=== PATIENT | female | born 1960 | race Caucasian/White ===

== ENCOUNTER → 2023-08-08 14:53 | Outpatient (REF) | payer BC, SELFPAY | LOC: WDC 14:53 | PROVIDERS: ATTENDING PHYSICIAN Obstetrics & Gynecology; FAMILY PHYSICIAN Family Medicine | DX: R92.2 Inconclusive mammogram (principal) | CPT/HCPCS: 76641 ==

== ENCOUNTER 2024-04-23 09:45 | Day surgery (SDC) | payer BC, SELFPAY ==
--- NOTE | 2024-04-23 11:51 | ITS.CL.CARDI ---
Medical Receptionist - Cardioversion
Cardioversion
Procedure Report:
Date of Procedure: 04/23/24
Procedure: Cardioversion
Indication: Symptomatic atrial fibrillation
Performing Physician: Kenisha Chirinos DO [facility]
Anticoagulation: Eliquis
Technique: The patient was brought to the holding area. Signed informed consent was obtained. A time out was called and performed. The patient was anesthetized by the anesthesia service. Anticoagulation status was reviewed and appropriate. R2 pads
were placed anteriorly and posteriorly. A 200 J synchronized biphasic shock restored normal sinus rhythm without significant bradycardia. There were no complications.
Conclusion: Uncomplicated cardioversion from atrial fibrillation to sinus rhythm. Postprocedure EKG sinus bradycardia with heart rates 56 bpm and otherwise normal tracing.
Recommendation: Routine post cardioversion care. Continue termite control representative anticoagulation.
== END 2024-04-23 11:10 | disposition home or self-care (01) ==
LOC: CATH 09:45
PROVIDERS: ATTENDING PHYSICIAN Internal Medicine Cardiovascular Disease; FAMILY PHYSICIAN Physician Assistant Medical; OTHER PHYSICIAN Internal Medicine Cardiovascular Disease
DX: Z79.01 Long term (current) use of anticoagulants (principal); I48.91 Unspecified atrial fibrillation
CPT/HCPCS: 92960; 93005

== ENCOUNTER → 2024-05-02 14:10 | Outpatient (REF) | payer BC, SELFPAY | LOC: WDC 14:10 | PROVIDERS: ATTENDING PHYSICIAN Obstetrics & Gynecology; FAMILY PHYSICIAN Physician Assistant Medical | DX: Z12.31 Encounter for screening mammogram for malignant neoplasm of breast (principal) | CPT/HCPCS: 77063; 77067 ==

== ENCOUNTER → 2024-05-25 12:00 | Outpatient (REF) | payer BC, SELFPAY | LOC: DHSLP 12:00 | PROVIDERS: ATTENDING PHYSICIAN Internal Medicine Cardiovascular Disease; FAMILY PHYSICIAN Physician Assistant Medical | DX: G47.33 Obstructive sleep apnea (adult) (pediatric) (principal) | CPT/HCPCS: 95806 ==

== ENCOUNTER 2024-05-31 05:59 | Day surgery (SDC) | payer BC, SELFPAY ==
--- NOTE | 2024-05-22 09:05 | HPS.HSE ---
Family Physician
-
Family Physician: NOT KNOW UNKNOWN - PT DOES
Chief Complaint
-
Persistent atrial fibrillation.
History of Present Illness
The patient is a 64-year-old female presenting today for persistent atrial fibrillation. The patient reports a wide variety of symptoms associated with this diagnosis. Noted symptoms include palpitations, fatigue, shortness of breath with
exertion, and near syncope. She previously underwent multiple FLORIDALMA-guided cardioversions and pulmonary vein isolation in 2014 secondary to this diagnosis. She is on current pharmacological therapy with Metoprolol Succinate. She reports she has been
compliant with Eliquis for oral anticoagulation. She notes that her current symptoms greatly interfere with her activities of daily living and overall impact her quality of life. She is interested in pursuing with pulmonary vein isolation for
further arrhythmia management. She denies any current complaints today such as chest pain and shortness of breath at rest, nausea, vomiting, diarrhea, lightheadedness, dizziness, cough, sore throat, or fever.
Medical History
Past Medical History
Past Medical History: Reports Other
Additional Past Medical History:
1. Paroxysmal atrial fibrillation, status post multiple FLORIDALMA-guided cardioversions and pulmonary vein isolation 2014; pharmacological therapy with Metoprolol Succinate and oral anticoagulation with Eliquis.
2. Elevated blood pressure without diagnosis of hypertension.
3. Sinus bradycardia secondary to Metoprolol.
4. Mild-moderate mitral regurgitation.
5. Mild tricuspid regurgitation.
6. Small, circumferential pericardial effusion on echocardiogram 2020.
7. Venous varicosities.
8. Probable obstructive sleep apnea, awaiting sleep study.
9. Colon polyps.
10. Diverticulosis.
11. Hemorrhoids.
12. Vertigo.
13. Mildly elevated transaminases.
Past Surgical History: Reports Other
Additional Past Surgical History:
1. Pulmonary vein isolation.
2. Multiple FLORIDALMA-guided cardioversions.
3. Hysterectomy.
4. Face and neck lift.
5. Holden teeth extraction.
6. Colonoscopy x3.
Social History
Tobacco: Non-smoker
Alcohol: Other (She reports 2-3 glasses of wine weekly. )
Personal:
Living: Other (She lives in a 2 story home with her . )
Family History
Family History: Early CAD (Father reportedly had a myocardial infarction in his 50s. )
Allergies / Home Medications
Allergy/Medication List:
Home medications:
1. Eliquis 5 mg p.o. twice a day.
2. Metoprolol Succinate 25 mg p.o. twice a day.
3. Multivitamin 1 tablet p.o. daily.
4. Emergen-C 1 tablet p.o. daily as needed.
Allergies: No known allergies.
Review of Systems
-
A 12 point ROS was completed and negative except as noted: Yes
Physical Exam
Vital Signs
Blood pressure 141/73. Heart rate 46. Respirations 18. Pulse ox 100% on room air.
Height 5 feet, 6 inches. Weight 64.6 kg. BMI 23.0.
Physical Exam
General: Well Developed, Well Nourished and No Apparent Distress
HEENT: NormoCephalic, Moist mucous membranes, Atraumatic and PERRLA
Respiratory: Clear
Cardiac: Bradycardia
GI: Soft, Non Tender and Non Distended
Musculoskeletal: No Edema and Normal Gait & Station
Skin: Warm and Dry
Neuro: AO x 3 and Nonfocal/grossly intact
Laboratory Results
-
DIAGNOSTIC STUDIES as of 05/22/2023: White blood cell count 5.4. Hemoglobin 13.6. Platelet count 229,000. PT 15.6. INR 1.21. Sodium 138. Potassium 4.5. BUN 17. Creatinine 0.8. Glucose 89. Calcium 9.3. Magnesium 2.1. AST 45. ALT 46. Albumin 4.5.
Type and screen O positive.
EKG 05/22/2023: Marked sinus bradycardia with sinus arrhythmia.
Transesophageal echocardiogram 05/22/2024: Normal LV size and systolic function. Left ventricular ejection fraction estimated 55%. Normal RV size and systolic function. Dilated left atrium. Left atrial appendage without thrombus. Mild to moderate
central mitral regurgitation. Mild tricuspid regurgitation. Trileaflet sclerotic aortic valve with very trivial central aortic regurgitation. Interatrial septum with [id number] flow detected by color-flow Doppler consistent with PFO versus
iatrogenic post PVI. Agitated saline, 'bubble study' negative. FLORIDALMA and bubble study 03/2015 negative for shunt. Compared to study dated 01/07/2021, mitral regurgitation previously mild.
Impression/Plan
-
IMPRESSION/PLAN:
1. Persistent atrial fibrillation: The patient is in need of pulmonary vein isolation with Dr. Louis Edmonds on 05/31/2024. The benefits and risks of the procedure have been explained to the patient. The patient understands these risks and wishes to
proceed. She will not be required to undergo a pre-procedural transesophageal echocardiogram as she has been compliant with her home oral anticoagulation. She is aware to continue Eliquis uninterrupted prior to her procedure. She will take no
medications the morning of her ablation.
[2024-05-22 09:44] VITALS: BMI 23.0
[2024-05-22 10:17] LABS: % Basophils 0.4 % (0-2); % Eosinophils 1.7 % (0-6); % Immature Granulocytes 0.2 % (0-0.5); % Lymphocytes 24.2 % (20.5-51.1); % Monocytes 8.9 % (1.7-9.3); % Neutrophils 64.6 % (42.2-75.2); Absolute Eosinophils 0.1 10^3/uL (0-0.7); Absolute Lymphocytes 1.3 10^3/uL (1.2-3.4); Absolute Monocytes 0.5 10^3/uL (0.1-0.6); Absolute Neutrophils 3.5 10^3/uL (1.4-6.5); Hematocrit 40.2 % (37.0-47.0); Hemoglobin 13.6 g/dL (12.0-16.0); Mean Corp Hgb Conc. 33.8 g/dL (33.0-37.0); Mean Corpuscular Hgb 31.1 pg (27.0-31.0); Mean Corpuscular Volume 91.8 fL (81.0-99.0); Mean Platelet Volume 9.2 fL (7.4-10.4); Nucleated Red Blood Cells % 0 %; Platelet Count 229 10^3/uL (130-400); Red Blood Cell Count 4.38 10^6/uL (4.20-5.40); White Blood Cell Count 5.4 10^3/uL (4.8-10.8)
[2024-05-22 10:36] LABS: ALT (SGPT) 46 U/L (0-35); AST (SGOT) 45 U/L (14-36); Albumin 4.5 g/dl (3.5-5.0); Alkaline Phosphatase 88 U/L (38-126); Blood Urea Nitrogen 17 mg/dl (7-17); Calcium 9.3 mg/dl (8.4-10.2); Carbon Dioxide 31 mmol/L (22-30); Chloride 101 mmol/L (98-107); Estimated Creatinine Clearance 67 ml/min; Glucose 89 mg/dl (70-99); Magnesium 2.1 mg/dl (1.6-2.3); Potassium 4.5 mmol/L (3.5-5.1); Sodium 138 mmol/L (135-145); Total Bilirubin 0.9 mg/dl (0.2-1.3); Total Protein 6.5 g/dl (6.3-8.2); eGFR > 60.00
[2024-05-22 10:46] LABS: INR 1.21; PT 15.6 Sec (11.4-14.6)
[2024-05-31] VITALS (18 sets, daily range): BP systolic 110–149; BP diastolic 61–77; BMI 22.3
[2024-05-31 08:32] LABS: ACT-LR - POC 313 Seconds (116-155)
--- NOTE | 2024-05-31 09:18 | ITS.CL.ABL ---
Senior Accountant Analyst - Ablation
Ablation
Procedure Report:
ELECTROPHYSIOLOGY ABLATION STUDY
DATE:: May 31, 2024�����������������������������REFERRING: Dr. Edmonds
INDICATION: Paroxysmal supraventricular tachycardia in the form of atrial fibrillation.��Prior pulmonary vein isolation in 2014 with a 28 mm cryoballoon
HISTORY: See H and P.� As above with recurrent persistent atrial fibrillation and left atrial dilation
ANTIARRHYTHMIC DRUG: Metoprolol
PRE-PROCEDURE FLORIDALMA: No intracardiac thrombus
PRESENTING RHYTHM: Sinus rhythm
'TIME-OUT':��called and confirmed.
SEDATION/ANESTHESIA:��provided via the anesthesia department using general anesthesia (LMA).
INTRAVENOUS/ARTERIAL ACCESS:
Right femoral venous - 10 Fr, 8Fr
Ultrasound guidance for bilateral femoral vein access was utilized by me to obtain access with demonstration of normal anatomy
CHADS-VASC Score:
HAS-Bled Score
PROCEDURE:
1.��A decapolar CS catheter was placed within the CS for mapping and pacing.��This was also used as the reference catheter for the 3-D map.
2. The intracardiac ultrasound catheter was positioned in the RA to identify the FO for targeting of transseptal puncture, assist��in identification of the pulmonary vein ostia, monitoring pre and post ablation pulmonary vein flow velocities,
monitoring for 'bubble' formation during RF application as a sign of thermal injury,��and to monitor for pericardial effusion during mapping and ablation procedure.���Left atrial size, LV ejection fraction, and pulmonary vein flows were monitored
pre and post ablation procedure. The other valves were inspected and found to be free of significant regurgitation or stenosis. There is a trace pericardial effusion preprocedure which was stable post procedure.
3.��Half of the calculated heparin bolus was administered prior to the first transeptal puncture.��Transseptal puncture was performed to diagnose RA and LA pressure so that safety of LA mapping and ablation could be further assessed, and to access
the left atrium and pulmonary veins for mapping and ablation.��This entailed advancing an 10 Frisian steerable sheath with dilator into the superior vena cava and withdrawing both (monitoring intracardiac ultrasound, fluoroscopy and tip pressure)
with the tip oriented toward the atrial septum.��The fossa ovalis was engaged (indicated by sudden displacement of the sheath tip as well as tenting of the fossa seen on intracardiac ultrasound).��Left atrial access required a pass with the
Brockenbrough needle extended.��Left atrial catheter position was confirmed by pressure monitoring (RA mean pressure 8 mm Hg and LA mean presure 14 mm Hg), LA saturation (99%),��as well as fluoroscopy.��The sheath was advanced over the dilator and
positioned in the left atrium.��This procedure was repeated for the Agilis sheath.��The remainder of the calculated heparin bolus was administered and heparin was
infused to maintain ACT at 300 -350 seconds throughout the case.
4.��RA pacing was performed via the proximal decapolar poles and LA pacing was performed via the distal decapolr poles.
5. A quadrapolar catheter was first positioned at the His position for His Bundle recording which was tagged via the 3-D Navex sytem, and then passed to the RVA for RV pacing and recording.
6. 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 The pulmonary veins were isolated in a [place] fashion at baseline although lesions were given to the antrum
and jeremias of the left veins as well as the septal aspects of the right veins as part of the procedure.
7.��Next, a 3-D map was created using Navex.���A 3-D reconstructed CT image was compared to the 3-D Navex map to assist in anatomic interpretation, mapping and ablation.��The CT image and the NavX image were fused.
8. Pulmonary vein lesions as above were given and the posterior wall was isolated with a roofline, floor line, and additional points inside the posterior wall demonstrating entrance and exit block in the posterior wall and all 5 pulmonary veins.
Burst pacing demonstrated left atrial refractoriness to be greater than 400 ms and the patient was noninducible supple for tachyarrhythmias.
9. Normal sinus node and AV deangelo function were noted.
TOTAL FLOURO TIME: 8.6 minutes 90 mGy
TOTAL RF DURATION: 0 minutes
REVERSAL OF HEPARIN: 45 mg of protamine, slow IV administration
COMPLICATIONS:
None
Intracardiac US shows no pericardial effusion post ablation.
SUMMARY:��
Complex left atrial mapping and ablation.
Isolation of the left atrial posterior wall, roof, floor and additional pulmonary vein lesions given to the jeremias of the left veins and the interatrial septum.
RECOMMENDATIONS:
1. Ambulate in 4 hours
2. Resume anticoagulation
3.� Consider same-day discharge
4.� Continue Toprol as tolerated
Copy to: Dr. Damián Edmonds
[2024-05-31 12:05] LABS: ACT-LR - POC > 397 Seconds (116-155)
--- NOTE | 2024-05-31 14:32 | W.PN.UPDATE ---
Update Note
Progress Note Update
64 yo WF s/p PVI (same day). She denies cp, sob, evelin diet, voiding, amb w/o dizziness, EKG SR/SB, R fem site c/d/i no HT. She will resume Eliquis tonight and continue metoprolol. Activity restrictions reviewed. She will f/u Dr. Edmonds in 3 mo. She
is for d/c home after 2pm.
SUMMARY:��
Complex left atrial mapping and ablation.
Isolation of the left atrial posterior wall, roof, floor and additional pulmonary vein lesions given to the jeremias of the left veins and the interatrial septum.
== END 2024-05-31 14:03 | disposition home or self-care (01) ==
LOC: CATH 05:59
PROVIDERS: ATTENDING PHYSICIAN Internal Medicine Cardiovascular Disease; FAMILY PHYSICIAN Physician Assistant Medical
DX: I48.19 Other persistent atrial fibrillation (principal); I08.1 Rheumatic disorders of both mitral and tricuspid valves; I47.19 Other supraventricular tachycardia; I49.8 Other specified cardiac arrhythmias; Z79.01 Long term (current) use of anticoagulants; Z79.899 Other long term (current) drug therapy; Z82.49 Family history of ischemic heart disease and other diseases of the circulatory system; Z86.0100 Personal history of colon polyps, unspecified; Z87.19 Personal history of other diseases of the digestive system; Z90.710 Acquired absence of both cervix and uterus; R03.0 Elevated blood-pressure reading, without diagnosis of hypertension; I31.39 Other pericardial effusion (noninflammatory); K57.90 Diverticulosis of intestine, part unspecified, without perforation or abscess without bleeding; R42 Dizziness and giddiness; R74.01 Elevation of levels of liver transaminase levels
CPT/HCPCS: C1766; C1894; C1892; C1759; 36415; 80053; 83735; 85025; 85347; 85610; 86850; 86900; 86901; 93005; 93656; 93657

== ENCOUNTER → 2024-12-25 13:50 | Outpatient (REF) | payer BC, SELFPAY | LOC: WDC 13:50 | PROVIDERS: ATTENDING PHYSICIAN Obstetrics & Gynecology; FAMILY PHYSICIAN Physician Assistant Medical | DX: R92.30 Dense breasts, unspecified (principal) | CPT/HCPCS: 76641 ==

== ENCOUNTER 2025-01-03 06:17 | Day surgery (SDC) | payer BC, SELFPAY | END 2025-01-03 12:36 | disposition home or self-care (01) | LOC: GI 06:17 | PROVIDERS: ATTENDING PHYSICIAN Internal Medicine; FAMILY PHYSICIAN Physician Assistant Medical | DX: Z12.11 Encounter for screening for malignant neoplasm of colon (principal); K64.8 Other hemorrhoids; K57.30 Diverticulosis of large intestine without perforation or abscess without bleeding; D12.3 Benign neoplasm of transverse colon; D12.2 Benign neoplasm of ascending colon; Z86.0100 Personal history of colon polyps, unspecified; Z80.0 Family history of malignant neoplasm of digestive organs | CPT/HCPCS: 45385; 45380; 88305 ==

== ENCOUNTER 2025-02-14 06:52 | Day surgery (SDC) | payer MEDICARE, BC, SELFPAY ==
--- NOTE | 2025-02-14 08:19 | ITS.CL.CARDI ---
Soot Blower - Cardioversion
Cardioversion
Procedure Report:
Date of Procedure: 02/14/25
Procedure: Cardioversion
Indication: Symptomatic atrial fibrillation
Performing Physician: Douglas Mccoy MD
Technique: The patient was brought to the holding area. Signed informed consent was obtained. A time out was called and performed. The patient was anesthetized by the anesthesia service. Anticoagulation status was reviewed and appropriate. R2 pads
were placed anteriorly and posteriorly. After FLORIDALMA revealed no thrombus, A 200 J synchronized biphasic shock restored normal sinus rhythm without significant bradycardia. There were no complications.
Conclusion: Uncomplicated cardioversion from atrial fibrillation to sinus rhythm.
Recommendation: Routine post cardioversion care. Continue fpc anticoagulation.
== END 2025-02-14 09:25 | disposition home or self-care (01) ==
LOC: CATH 06:52
PROVIDERS: ATTENDING PHYSICIAN Internal Medicine Cardiovascular Disease; FAMILY PHYSICIAN Physician Assistant Medical; OTHER PHYSICIAN Internal Medicine Cardiovascular Disease
DX: I48.0 Paroxysmal atrial fibrillation (principal); R00.1 Bradycardia, unspecified; G47.33 Obstructive sleep apnea (adult) (pediatric); Z79.01 Long term (current) use of anticoagulants; Z79.899 Other long term (current) drug therapy; I08.3 Combined rheumatic disorders of mitral, aortic and tricuspid valves; I70.0 Atherosclerosis of aorta
CPT/HCPCS: 93312; 93325; 93320; 92960; 93005